=== PATIENT | female | born 1960 | race Caucasian/White ===

== ENCOUNTER 2018-03-07 13:09 | Outpatient (CLI) | payer BC ==
[~2018-03-07 13:09] MED LIST: ALBU8HFA PO; AMIO200T57 PO; ATOR20TA66 PO; BECL8.7A6 INH; CARB1TAB36 PO; ERYT1OIN6 EACHEYE; FERR134T2 PO; FOLI0.8C PO; GABA600T PO; INSU100V36 SQ; INSU100V9 SQ; LEVA15HF4 IH; METO25TA6 PO; MULT-1179 PO; OMEP20TA23 PO; THI100T PO
== END 2018-03-07 23:59 | disposition home or self-care (01) ==
LOC: VAS 13:09
PROVIDERS: ATTEND Family Medicine
DX: R59.0 Localized enlarged lymph nodes (principal); M25.572 Pain in left ankle and joints of left foot; M25.562 Pain in left knee; M79.89 Other specified soft tissue disorders; I10 Essential (primary) hypertension; J44.9 Chronic obstructive pulmonary disease, unspecified; E11.9 Type 2 diabetes mellitus without complications; F10.10 Alcohol abuse, uncomplicated; R60.0 Localized edema; Z87.891 Personal history of nicotine dependence
CPT/HCPCS: 93971

== ENCOUNTER 2018-08-05 11:28 | Emergency (ER) | payer MEDICARE, OTHER ==
[~2018-08-05] VITALS: Ht 167.6 cm; Wt 104.4 kg
[~2018-08-05 11:28] MED LIST changes: +AMIO200T40 PO; -AMIO200T57 PO; +TRAM50TA2 PO
[2018-08-05] MEDS ORDERED: traMADol 50MG tablet PO ONE (12:15)
[2018-08-05 14:26] VITALS: BP 118/63
== END 2018-08-05 14:30 | disposition home or self-care (01) ==
LOC: ER 11:29
DX: S80.02XA Contusion of left knee, initial encounter (principal); I48.91 Unspecified atrial fibrillation; I10 Essential (primary) hypertension; E11.9 Type 2 diabetes mellitus without complications; Z87.891 Personal history of nicotine dependence; Z79.4 Long term (current) use of insulin; Z79.899 Other long term (current) drug therapy; W01.0XXA Fall on same level from slipping, tripping and stumbling without subsequent striking against object, initial encounter; Y93.89 Activity, other specified; Y92.89 Other specified places as the place of occurrence of the external cause; Y99.8 Other external cause status
CPT/HCPCS: 73564; 99284

== ENCOUNTER 2018-08-07 00:02 | Emergency (ER) | payer MEDICARE, BC ==
[~2018-08-07] VITALS: Ht 167.6 cm; Wt 104.3 kg
[2018-08-07 01:32] VITALS: BP 134/73
[2018-08-07] MEDS ORDERED: LIDO700A32 TOP (03:16)
== END 2018-08-07 03:41 | disposition home or self-care (01) ==
LOC: ER 00:02
DX: S80.02XD Contusion of left knee, subsequent encounter (principal); M25.562 Pain in left knee; I48.91 Unspecified atrial fibrillation; I10 Essential (primary) hypertension; J44.9 Chronic obstructive pulmonary disease, unspecified; E11.9 Type 2 diabetes mellitus without complications; Z98.890 Other specified postprocedural states; Z79.899 Other long term (current) drug therapy; Z79.4 Long term (current) use of insulin; W01.0XXD Fall on same level from slipping, tripping and stumbling without subsequent striking against object, subsequent encounter
CPT/HCPCS: 99284

== ENCOUNTER 2019-06-24 07:59 | Emergency (ER) | payer BC, MEDICARE ==
[~2019-06-24] VITALS: Ht 152.4 cm; Wt 85.5 kg
[~2019-06-24 07:59] MED LIST changes: -AMIO200T40 PO; +AMIO200T61 PO; +LIDO700A32 TOP; -TRAM50TA2 PO
[2019-06-24] MEDS ORDERED: normal saline 1000ML IV soln IVB ONE (08:15)
[2019-06-24] MEDS ORDERED: fentaNYL/PF 50MCG/1 ML 2ML syringe IV ONE (08:25)
[2019-06-24 09:04] LABS: BASOPHILS % (AUTO) 0.2 % (0-1); EOSINOPHILS # (AUTO) 0.1 X10'3 (0-0.9); EOSINOPHILS % (AUTO) 1.2 % (0-6); HEMATOCRIT 36.4 % (35.0-45.0); LYMPHOCYTES # (AUTO) 0.7 X10'3 (1.1-4.8); LYMPHOCYTES % (AUTO) 8.4 % (21-51); MEAN CORPUSCULAR HGB CONC 32.9 g/dL (33.0-36.5); MEAN CORPUSCULAR VOLUME 75.9 FL (78-98); MEAN PLATELET VOLUME 9.9 FL (7.4-10.4); MONOCYTES # (AUTO) 0.2 X10'3 (0-0.9); MONOCYTES % (AUTO) 2.6 % (2-12); NEUTROPHILS # (AUTO) 7.2 X10'3 (1.8-7.7); NEUTROPHILS % (AUTO) 87.6 % (42-75); PLATELET COUNT 165 X10'3 (140-440); RED CELL DISTRIBUTION WIDTH 17.1 % (11.5-14.5); WHITE BLOOD COUNT 8.2 X10'3 (4.5-11.0)
[2019-06-24 09:17] LABS: ALANINE AMINOTRANSFERASE 10 U/L (12-78); ALBUMIN 3.4 G/DL (3.4-5.0); ALKALINE PHOSPHATASE 100 IU/L (46-116); ANION GAP 9 (8-16); ASPARTATE AMINO TRANSFERASE 11 U/L (10-37); BILIRUBIN,TOTAL 0.3 MG/DL (0.1-1.0); BLOOD UREA NITROGEN 31 MG/DL (7-18); BUN/CREATININE RATIO 25.8 (6.6-38.0); CALCIUM 8.8 MG/DL (8.5-10.1); CHLORIDE 107 MMOL/L (99-107); GLUCOSE 123 MG/DL (70-104); POTASSIUM 3.7 MMOL/L (3.5-5.1); SODIUM 142 MMOL/L (135-145); TOTAL CARBON DIOXIDE 26.5 MMOL/L (24-32); TOTAL PROTEIN 6.9 G/DL (6.4-8.2); eGFR 46 ML/MIN
[2019-06-24 09:25] LABS: MAGNESIUM 1.7 MG/DL (1.5-2.4)
[2019-06-24] MEDS ORDERED: HYDROcodone/acetaminophen 5mg/325mg tablet PO ONE (09:35)
[2019-06-24 09:53] VITALS: BP 109/62
== END 2019-06-24 10:10 | disposition home or self-care (01) ==
LOC: ER 07:59
DX: R00.0 Tachycardia, unspecified (principal); G20 Parkinson's disease; I48.91 Unspecified atrial fibrillation; I10 Essential (primary) hypertension; J43.9 Emphysema, unspecified; E11.9 Type 2 diabetes mellitus without complications; Z98.890 Other specified postprocedural states; Z79.4 Long term (current) use of insulin; Z79.899 Other long term (current) drug therapy
CPT/HCPCS: 36415; 71045; 80053; 83735; 83880; 84484; 85025; 85610; 93005; 96374; 99284; J3010; J7030

== ENCOUNTER 2020-07-02 14:11 | Emergency (ER) | payer MEDICARE ==
[~2020-07-02] VITALS: Ht 162.6 cm; Wt 100.0 kg
[~2020-07-02 14:11] MED LIST changes: +amiodarone 50MG/ML inj IV ONE; +calcium chloride 100 MG/1 ML inj IV ONE; +dextrose 50%-water 50ml dispensing syringe IV ONE; +epiNEPHrine 0.1mg/ml 10ml syringe ONE; +etomidate 2mg/ml inj. ONE; +magnesium sulf 1 GM/2 ML ONE; +rocuronium 10mg/ml inj IV ONE; +sodium bicarbonate (8.4%) 1 mEq/ml syringe ONE
[2020-07-02] MEDS ORDERED: succinylcholine 20mg/ml inj IV ONE (14:14)
[2020-07-02] MEDS ORDERED: acetylcysteine IV (Acetadote) 0 MG in dextrose 5%-water 1,000 ML IV ONE (14:15)
[2020-07-02] MEDS ORDERED: albuterol 2.5 MG/3 ML nebule ONE (14:42)
[2020-07-02] MEDS ORDERED: dextrose 50%-water 50ml dispensing syringe IV ONE (14:45)
[2020-07-02] MEDS ORDERED: insulin regular, human 10 units/0.1 ml syringe IV ONE (14:45)
[2020-07-02 14:48] LABS: BASOPHILS % (AUTO) 0 % (0-1); EOSINOPHILS % (AUTO) 0 % (0-6); HEMATOCRIT 46.1 % (35.0-45.0); HEMOGLOBIN 14.4 g/dl (12.0-16.0); LYMPHOCYTES % (AUTO) 3.1 % (21-51); MEAN CORPUSCULAR HEMOGLOBIN 23.5 PG (27.0-31.0); MEAN CORPUSCULAR HGB CONC 31.2 g/dL (33.0-36.5); MEAN CORPUSCULAR VOLUME 75.2 FL (78-98); MEAN PLATELET VOLUME 10.9 FL (7.4-10.4); MONOCYTES # (AUTO) 1.2 X10'3 (0-0.9); MONOCYTES % (AUTO) 3.5 % (2-12); NEUTROPHILS # (AUTO) 31.9 X10'3 (1.8-7.7); NEUTROPHILS % (AUTO) 93.4 % (42-75); PLATELET COUNT 285 X10'3 (140-440); RED BLOOD COUNT 6.13 X10'6 (4.20-5.60)
[2020-07-02 14:50] LABS: WHITE BLOOD COUNT 34.1 X10'3 (4.5-11.0)
[2020-07-02 15:02] LABS: ALBUMIN 3.3 G/DL (3.4-5.0); ALBUMIN/GLOBULIN RATIO 0.7 (1.1-1.5); ALKALINE PHOSPHATASE 82 IU/L (46-116); ANION GAP 26 (8-16); BILIRUBIN,TOTAL 1.3 MG/DL (0.1-1.0); CALCIUM 8.8 MG/DL (8.5-10.1); CHLORIDE 107 MMOL/L (99-107); CREATININE 7.56 MG/DL (0.40-0.90); GLUCOSE 447 MG/DL (70-104); SODIUM 150 MMOL/L (135-145); TOTAL CARBON DIOXIDE 17.1 MMOL/L (24-32); TOTAL PROTEIN 7.9 G/DL (6.4-8.2); eGFR 5 ML/MIN
--- NOTE | 2020-07-02 15:27 | NUR ---
donor network called
--- NOTE | 2020-07-02 15:41 | NUR ---
case id number [id number] [facility] donor network. Anoop was the repersentive i talked to
[2020-07-02 15:42] LABS: ALANINE AMINOTRANSFERASE 4048 U/L (12-78); ASPARTATE AMINO TRANSFERASE 2343 U/L (10-37); BLOOD UREA NITROGEN 244 MG/DL (7-18); BUN/CREATININE RATIO 32.3 (6.6-38.0)
[2020-07-02 16:05] LABS: TOTAL CELLS COUNTED 100
[2020-07-02 16:06] LABS: ANISOCYTOSIS 1+; LARGE PLATELETS FEW; MICROCYTOSIS 1+; PLATELET ESTIMATE NORMAL
--- NOTE | 2020-07-02 16:33 | NUR ---
SPOKE WITH DEPUTGerman CARLOS AND HE SAID WE CAN RELAESE THE BODY TO THE MORTURARY AND DR. DARDEN CAN SIGN THE CERTIFICATE. ANY OTHER QUESTIONS CALL [facility]
--- NOTE | 2020-07-02 17:48 | NUR ---
Patients belongings discussed with patients Daughter, Dillan Rodriguez, who stated that she would like to have the two rings to take home with her and have the yellow hoop earrings x2 go to the mortuary with patient. Notified daughter regarding having to cut clothing off patient during resuscitation, Dillan stated to discard clothing in trash. No other belongings were brought in with patient and/or found on her person. Patient had only two rings on her person at time of expiration both rings were released to daughter Dillan Rodriguez -yellow ring with 4 red stone and 3 white stones. -silver colored ring with 14 white stones
--- NOTE | 2020-07-02 18:27 | NUR ---
[facility] her phine number is [phone]. THere was no answer a message was left
--- NOTE | 2020-07-02 18:29 | NUR ---
charting for code was done on code blue record paper see chart with attached paperwork
--- NOTE | 2020-07-02 19:52 | NUR ---
SPOKE WITH DAUGHTER CUCO AND SHE IS TALKING TO HER UNCLE ABOUT WHAT MORTURARY, SHE SAID THEY WOULD CALL US IN THE MORNING AND I LET HER KNOW WE NEED TO KNOW SWAPNIL. SHE WILL CALL ME BACK
--- NOTE | 2020-07-02 20:10 | NUR ---
spoke with daughter and they have decided to have her transported to [facility], darron is being called now
== END 2020-07-02 21:48 | disposition expired ==
LOC: ER 14:12
DX: I46.9 Cardiac arrest, cause unspecified (principal); K92.2 Gastrointestinal hemorrhage, unspecified; I49.01 Ventricular fibrillation; G20 Parkinson's disease; I48.91 Unspecified atrial fibrillation; I10 Essential (primary) hypertension; J44.9 Chronic obstructive pulmonary disease, unspecified; E11.9 Type 2 diabetes mellitus without complications; Z98.890 Other specified postprocedural states; Z72.89 Other problems related to lifestyle; Z79.2 Long term (current) use of antibiotics; Z79.4 Long term (current) use of insulin; Z79.899 Other long term (current) drug therapy
CPT/HCPCS: 31500; 36415; 80053; 82553; 82948; 83880; 84484; 85007; 85025; 86885; 86900; 86901; 92950; 99291; J0171; J0330; J1815; J3475; 86920; 96374; 99285